=== PATIENT | female | born 2000 ===

== ENCOUNTER 2025-02-23 17:05 | Emergency (ER) | payer BC, SELFPAY ==
--- OUTSIDE RECORDS SUMMARY | 2025-02-13 16:30 | XMS_ITS ---
Author Organization [facility], Address [address] [address] Care Team Providers Care Environmental Engineering Assistant Name Role Phone ALBERT MASON Primary Care Provider Unavailabl Eagle Rodriguez Unavailable [phone] Migration, Provider Unavailable Unavailable REASON FOR VISIT Multum To Medispan Conversion Encounter Medications Medication SIG (Take, Route, Frequency, Duration) Notes Start Date End Date Status Propranolol HCl 60 MG Tablet 1 tab(s) orally 2 times a day; Duration: 30 day(s) Active Latuda 40 MG Tablet 1 tab(s) orally once a day; Duration: 6 week(s) Active Multivitamin *Please review a nd pick correct strength-formulati on from Medispan options. If intended option is not shown, discontinue and re-order from Quick Search* Active Vitamin D3 *Please review a nd pick correct strength-formulati on from Medispan options. If intended option is not shown, discontinue and re-order from Quick Search* Active Vitamin B12 *Please review a nd pick correct strength-formulati on from Medispan options. If intended option is not shown, discontinue and re-order from Quick Search* Active pyRIDostigmine Bushnell 60 MG Tablet 1/2-1 tab(s) orally 3 times a day; Duration: 30 days Active Encounters Encounter Location Date Provider Diagnosis [facility], [address] [address] 02/13/2025 Provider Migration Postural orthostatic tachycardia syndrome [POTS] G90.A Assessments Encounter Date Diagnosis (ICD Code) Assessment Notes Treatment Notes Treatment Clinical Notes Section Notes 02/13/2025 Postural orthostatic tachycardia syndrome [POTS] (ICD-10 - G90.A) Plan Of Treatment Medication Medication Name Sig Start Date Stop Date Notes pyRIDostigmine Bushnell 60 MG Tablet 1/2-1 tab(s) orally 3 times a day; Duration: 30 days Next Appt Details Provider Name:Eagle Reeves, 03/16/2025 11:30:00 AM, [facility], [address], [address], Progress Notes * GORDON AQUINORAFAELOB: 2000 (24 yo F)Acc No.[id number]:02/13/2025 Patient: GORDON MATA Provider: Michelle Steven :2000 A ge:24 Y S ex:Female Date:02/13/2025 Address:[address] [place], [place] [id number] Pcp:ALBERT MASON Patient's Default Facility: [facility], Subjective: * Chief Complaints: * M ultum To Medispan Conversion Encounter * Medications: T akingLatuda(Lurasidone HCl) 40 MG Tablet 1 tab(s) orally once a day Multivitamin , Notes to Pharmacist: *Please review and pick correct strength-formulation from Medispan options. If intended option is not shown, discontinue and re-order from Quick Search*Propranolol HCl 60 MG Tablet 1 tab(s) orally 2 times a day Vitamin B12 , Notes to Pharmacist: *Please review and pick correct strength-formulation from Medispan options. If intended option is not shown, discontinue and re-order from Quick Search*Vitamin D3 , Notes to Pharmacist: *Please review and pick correct strength-formulation from Medispan options. If intended option is not shown, discontinue and re-order from Quick Search*Taking Latuda(Lurasidone HCl) 40 MG Tablet 1 tab(s) orally once a day Taking Multivitamin , Notes to Pharmacist: *Please review and pick correct strength-formulation from Medispan options. If intended option is not shown, discontinue and re-order from Quick Search*Taking Propranolol HCl 60 MG Tablet 1 tab(s) orally 2 times a day Taking Vitamin B12 , Notes to Pharmacist: *Please review and pick correct strength-formulation from Medispan options. If intended option is not shown, discontinue and re-order from Quick Search*Taking Vitamin D3 , Notes to Pharmacist: *Please review and pick correct strength-formulation from Medispan options. If intended option is not shown, discontinue and re-order from Quick Search* Assessment: * Assessment: 1. P ostural orthostatic tachycardia syndrome [POTS] - G90.A Plan: * Treatment: * Electronic signature of Prov za Migration on 02/23/2025 at 07:42 PM EST Sign off status: Pending * Provider: Michelle graham Migration Date: 04/15/2024 Generated for Yvrose glez/Anitha/João on: 04/25/2024 07:42 PM EST
--- NOTE | 2025-02-23 17:15 | ED.GENADULT ---
HPI - General Adult General Chief complaint: General Medical Stated complaint: ?Concussion Time Seen by Provider: 02/23/25 18:18 History of Present Illness ED Provider: Landy MUJICA narrative: The patient is a 24-year-old female who has been having problems with the headaches for several months. She reports that she had several head injuries in May and June of this year. 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 She says that she was diagnosed with a post concussive syndrome. She is followed up with the workmen's compensation neurologist. She has had an MRI. She has gotten a new job and has not had any recent new head injuries but has had persistent headaches over the last several months. She has stopped seeing her workmen's compensation neurologist. She has a primary neurologist that she has seen previously for POTS syndrome. She says that over the last month her headaches has been worse. She also says that she has had pains all over her body. She also reports she has had hematuria. The patient had an MRI 6 weeks ago on January 09. This showed no acute findings. It showed a partially empty sella. It was compared to an MRI from April of 2023 and there was no significant change. Related Data Allergies Allergy/AdvReac Type Severity Reaction Status Date / Time No Known Allergies Allergy Verified 02/23/25 17:20 Review of Systems Review of Systems: Yes all other systems are reviewed and are negative [facility] Social History Social History Advance Directives: No Advance Directives Information Provided: No Physical Exam ED Vital Signs: Vital Signs - 24 hr 02/23/25 17:16 02/23/25 21:04 Temperature 98.7 F 98.3 F Pulse Rate 63 87 Respiratory Rate 18 16 Blood Pressure 161/85 H 136/74 Pulse Oximetry 99 97 Oxygen Delivery Method Room Air Room Air BMI result Body Mass Index 40.4 Const Other: The patient is awake and alert. The patient did not appear in obvious distress and did not seem acutely ill or in severe discomfort. HENMT Other: The face is symmetrical. Mucous membranes are moist. Eyes Other: Pupils are round, equal, and reactive to light, extraocular movements are intact, I did not think there was any funduscopic abnormality. I thought that there was no papilledema. Neck Other: The patient seemed able to touch her chin to her chest very easily. The neck seems entirely supple. Neck: Yes normal visual inspection and Yes no meningeal signs Resp Effort & Inspection: normal respiratory effort Auscultation: clear to auscultation bilaterally Cardio Rate: regular rate Rhythm: regular rhythm Heart sounds: S1 normal heart sound present and S2 normal heart sound present Skin Other: The skin is dry and unremarkable Neuro Other: The patient was awake and alert with a normal mental status and a normal affect. She did not seem toxic in any way. Pupils are round, equal, and reactive to light, extraocular movements are intact, funduscopic exam seems unremarkable, the face is symmetrical, speech was clear and normal, the patient has a completely supple neck, she has 5/5 strength in all 4 extremities. Finger-nose is normal. Heel-wakefield is normal. She has 1 to 2+ reflexes at the knees and ankles. Toes are going down bilaterally. She has a steady normal gait. She seems to have an entirely normal neurological exam. General: no meningeal signs Extrem Other: No peripheral edema Course Course Course Narrative: This is a rapid medical exam performed by Amada Brasher NP: Additional HPI, ROS, PE not included below will be deferred to primary provider. Patient is a 24y/o F presenting to the ED with cousin who reports that patient has had a prolonged course of symptoms since May of this year after several concussions, but was ultimately advised to present here by neurology. Has typed up notes regarding symptoms/workup thus far. Had MRI brain on 01/09 which was noted to be normal with exception of partially empty sella of indetermined signifigance. Complains of persistent migraines, forgetfulness, intermittent blurred vision, intermittent tinnitus, urinary sxs/hematuria, body aches. Patient very anxious and tearful in triage and expresses frustration at not receiving any diagnoses thus far. Symptoms interfering with sleep, work, etc. Plan: basic labs, UA to start Medications Administered Discontinued Medications Generic Name Dose Route Start Last Admin Trade Name Freq PRN Reason Stop Dose Admin Diphenhydramine HCl 25 mg 02/23/25 18:46 02/23/25 19:51 Diphenhydramine Hcl 50 Mg/Ml Vial IVPUSH 02/23/25 18:47 25 mg ONCE ONE Administration Gabapentin 300 mg 02/23/25 20:51 02/23/25 21:03 Gabapentin 300 Mg Capsule PO 02/23/25 20:52 300 mg ONCE ONE Administration Sodium Chloride 1,000 mls @ 999 mls/hr 02/23/25 19:00 02/23/25 19:52 Ns IV 02/23/25 20:00 999 mls/hr .Q1H1M RADHAMES Administration Ketorolac Tromethamine 15 mg 02/23/25 18:46 02/23/25 19:51 Ketorolac Tromethamine 15 Mg/Ml Vial IVPUSH 02/23/25 18:47 15 mg ONCE ONE Administration Prochlorperazine Edisylate 10 mg 02/23/25 18:48 02/23/25 19:51 Prochlorperazine Edisylate 10 Mg/2 Ml Vial IVPUSH 02/23/25 18:49 10 mg ONCE ONE Administration Medical Decision Making Medical Decision Making [facility] Narrative: The patient is a 24-year-old with a history of POTS who presents with a complaint of a headache syndrome that has been worsening over the last several months. She reports sustaining concussions from repeated head injuries at work earlier this year. She has been seen by a workmen's compensation neurologist. She also has a primary neurologist whom she had been connected with because of her POTS. She had an MRI 6 weeks ago as an outpatient that showed no acute findings and was similar to an MRI done in April 2023 which has been done because of her POTS. Clinically the patient does not appear toxic or obviously acutely ill in any way by my estimation. She was prescribed Qulipta by one of these 2 neurologists in November and she has been taking it since that time. She has not been getting significant relief from this. The patient has a friend who works at this hospital and who apparently contacted [facility] today and described the patient is having unrelenting headaches. Reportedly they were advised to come to the emergency room. On my physical exam I do not find any alarming findings and it was not my impression that the patient was in intractable discomfort. I explained to the patient that I did not think I would be able to make any diagnostic breakthrough today but would provide an attempt at some pain relief with migraine medications. The patient was then given IV fluids, IV ketorolac, prochlorperazine, and diphenhydramine. It was difficult to assess whether the patient received any significant effect from these medications because the patient had friends at the bedside who seemed very intent on having the patient admitted to the hospital because of these ongoing headache symptoms. I explained that I was not finding any acutely dangerous process that I thought indicated hospitalization and that I thought she would need to continue working with her primary care doctor and your primary neurologist. The patient was then discharged to follow up with her regular providers. She was given the contact information for [facility] in case she wishes to follow up locally. Lab Data 02/23/25 18:04 02/23/25 18:04 Labs: Lab Results 02/23/25 02/23/25 Range/Units 18:04 18:05 WBC 13.2 H (4.8-10.8) X10*3/uL RBC 4.96 (4.20-5.50) X10*6/uL Hgb 14.3 (12.0-16.0) g/dl Hct 43.9 (37.0-47.0) % MCV 88.5 (80.0-98.0) fL MCH 28.8 (27.0-33.0) pg MCHC 32.6 (31.0-35.0) g/dl RDW 12.9 (11.0-16.0) % Plt Count 303 (160-400) X10*3/uL MPV 9.8 (9.4-12.3) fL Immature Gran % (Auto) 0.3 (0.0-0.4) % Neut % (Auto) 57.1 (45-73) % Lymph % (Auto) 31.1 (20-40) % [place] % (Auto) 5.1 (2-11) % Eos % (Auto) 5.7 H (0-4) % Baso % (Auto) 0.7 (0-2) % Lymph # (Auto) 4.1 (1.2-4.9) X10*3/uL [place] # (Auto) 0.7 (0.1-1.2) X10*3/uL Eos # (Auto) 0.8 H (0.0-0.4) X10*3/uL Baso # (Auto) 0.1 (0.0-0.2) X10*3/uL Abs Immat Gran (auto) 0.04 H (0.00-0.03) X10*3/uL Absolute Neuts (auto) 7.5 (2.0-8.3) x10*3/uL Absolute Nucleated RBC 0.000 (0.0-0.012) X10*3/uL Nucleated RBC % (auto) 0.0 (0.0-0.2) /100WBC Sodium 144 (135-145) mmol/L Potassium 3.9 (3.3-5.1) mmol/L Chloride 108 (96-108) mmol/L Carbon Dioxide 25 (22-29) mmol/L Anion Gap 15 (12-20) BUN 8 L (9-16) mg/dL Creatinine 0.82 (0.5-1.4) mg/dL Estim Creat Clear Calc 125.0 Estimated GFR > 60 Random Glucose 95 (60-115) mg/dL Calcium 9.7 (8.4-10.2) mg/dL Total Bilirubin 0.3 (0.0-1.0) mg/dL AST 24 (5-31) U/L ALT 38 H (0-31) U/L Alkaline Phosphatase 105 (39-117) U/L Total Creatine Kinase 63 (26-140) U/L C-Reactive Protein 0.38 (< or = 0.50) mg/dL Total Protein 7.9 (6.5-8.0) g/dL Albumin 5.2 H (3.5-5.0) g/dL Beta HCG, Quant < 2 mIU/mL Urine Color Yellow Urine Appearance Clear Urine pH 6.5 (5.0-9.0) Ur Specific [place] 1.010 (1.005-1.025) Urine Protein Negative (Neg-Trace) mg/dL Urine Glucose (UA) Negative (Negative) mg/dL Urine Ketones Negative (Negative) mg/dL Urine Blood Trace H (Negative) Urine Nitrite Negative (Negative) Ur Leukocyte Esterase Negative (Negative) Urine RBC 0-2 (0-2) /HPF Urine WBC 0-5 (0-5) /HPF Ur Squamous Epith Cells 3-5 (0-2) /HPF Urine Bacteria None Seen (None Seen) Hyaline Casts 0-2 (0-2) /LPF Discharge Plan Discharge Clinical Impression: Headache Patient Disposition: Home, Self-Care Additional Instructions: Please contact your primary care doctor tomorrow morning and also your primary neurologist tomorrow morning to arrange follow up appointments to discuss these symptoms. Also contact your eye doctor. I think it would be good for you to be seen by an eye doctor as well. If you want to set up a neurology appointment in his area you have been given the contact information for [facility]. Please continue your current medications. Return to the emergency room if significantly worse. Referrals: [facility] [Provider Group] Rosa Elena Carter MD [Primary Care Provider, Family Practice] Interventions: ED Discharge Assessment Last Done: 02/23/25 21:04 Discharge Date/Time: 02/23/25 21:06 Print Language: Burkinan
[2025-02-23 17:16] VITALS: BP 161/85; PULSE 63; RESP 18; TEMP 37.1; O2SAT 99; BMI 40.4
[2025-02-23 18:12] LABS: MANUAL DIFF FLAG NO
[2025-02-23 18:14] LABS: Hematocrit 43.9 % (37.0-47.0); Hemoglobin 14.3 g/dl (12.0-16.0); Imm Gran Abs Auto 0.04 X10*3/uL (0.00-0.03); Imm Gran Pct Auto 0.3 % (0.0-0.4); Lymphocytes Absolute Auto 4.1 X10*3/uL (1.2-4.9); Mean Corpuscular HGB Conc 32.6 g/dl (31.0-35.0); Mean Corpuscular Hemoglobin 28.8 pg (27.0-33.0); Mean Corpuscular Volume 88.5 fL (80.0-98.0); NRBC Abs Auto 0.000 X10*3/uL (0.0-0.012); NRBC Pct Auto 0.0 /100WBC (0.0-0.2); Platelet Count 303 X10*3/uL (160-400); Red Blood Count 4.96 X10*6/uL (4.20-5.50); White Blood Count 13.2 X10*3/uL (4.8-10.8)
[2025-02-23 18:21] LABS: Appearance Urine Clear; Glucose Urine UA Negative (Negative); PH 6.5 (5.0-9.0); Specific Gravity - Urine 1.010 (1.005-1.025); UMIC TRIGGER UACC YES
[2025-02-23 18:34] LABS: Alanine Aminotransferase 38 U/L (0-31); Albumin Level 5.2 g/dL (3.5-5.0); Alkaline Phosphatase 105 U/L (39-117); Anion Gap 15 (12-20); Aspartate Amino Transferase 24 U/L (5-31); Blood Urea Nitrogen 8 mg/dL (9-16); Calcium 9.7 mg/dL (8.4-10.2); Carbon Dioxide 25 mmol/L (22-29); Chloride 108 mmol/L (96-108); Creatinine Clr Calc Pharmacy 125.0; Estimated Glomerular Filt Rate > 60; Potassium 3.9 mmol/L (3.3-5.1); Sodium 144 mmol/L (135-145); Total Protein 7.9 g/dL (6.5-8.0)
--- OUTSIDE RECORDS SUMMARY | 2025-02-23 19:42 | XMS_ITS | Clinical Summary ---
Author Organization [facility] Address [address] [place] [address] Care Team Providers Care Verifier Name Role Phone Pcp, No Primary Care Provider [phone] Immunizations Immunization Administration Dates Next Due PPD Test 09/05/2023 Social History Tobacco Use Types Packs/Day Years Used Date Smoking Tobacco: Never Assessed Comments Unknown Sex and Gender Information Value Date Recorded Sex Assigned at Not on file Legal Sex Female 11:31 AM EDT Gender Identity Not on file Sexual Orientation Not on file Last Filed Vital Signs Vital Sign Reading Time Taken Comments Blood Pressure - - Pulse - - Temperature 35.7 C (96.2 F) 10/27/2020 10:29 AM EDT Respiratory Rate - - Oxygen Saturation - - Inhaled Oxygen Concentration - - Weight - - Height - - Body Mass Index - - Plan of Treatment Health Maintenance Due Date Last Done Comments Depression: Screening Annually using PHQ-2/9 in Adults 18 yrs or above (or HM Modifier)([facility]) 11/26/2017 Hepatitis C Virus Infection in Adolescents and Adults: Screening (or Modifier) ([facility]) 11/26/2017 SDOH Screening Reminder: Annually for all adults ([facility]) 11/26/2017 Tobacco Smoking Cessation: i n Adults excluding Women: Behavioral and Pharmacotherapy Interventions ([facility]) 11/26/2017 Cervical Cancer Screenin-65 yrs of age (or Modifier) 11/26/2020 Cervical Cancer Screening: Pap every 3 yrs pts age 21-65 11/26/2020 Cervical Cancer: Pap Screening with Modifier timing ([facility]) 11/26/2020 Cervical Cancer: hrHPV alone or with cotesting Pap for Pts 30-65yrs screening every 5yrs ([facility]) 11/26/2020 Flu Vaccination: Yearly for ages 18mos through 64 years (or Modifier)([facility]) 10/30/2024 12/14/2016 COVID-19 Vaccine Screening: Initial Series and Booster Status ([facility]) (2 - season) 2024 08/02/2020 DTaP/Tdap/Td Vaccines ([facility]) (8 - Td or Tdap) 01/15/2033 01/15/2023, 04/05/2011, 11/29/2003, Additional history exists Zoster/Shingles Vaccine Series Screening: Adults aged 18+ yrs (or HM Modifiers)([facility]) (1 of 2) 11/26/2049 12/25/2007, 11/26/2000 Pneumococcal Vaccination Screening: Pts 0-19 & 19-49 yrs of age ([facility]) Aged Out 10/25/2000, 08/23/2000, 05/29/2000 No longer eligible based on patient's age to complete this topic Medical Devices Not on file Care Teams Verifier Relationship Specialty Start Date End Date Pcp, No PCP - General Family Medicine 09/05/23
--- OUTSIDE RECORDS SUMMARY | 2025-02-23 19:42 | XMS_ITS | Patient Health Record ---
Author Organization [facility] Address [id number] [place] [address] Care Team Providers Care Master Technician Name Role Phone FRANCISCO RODRIGUEZ, LAMINE Primary Care Provider Un available ALEXIS HUTCHINSON Unavailable [phone] Reason For Referral No Information Plan Of Treatment No Information Insurance Providers Payer Name Payer Address Payer Phone Subscriber Number Group Number Insured Name Patient Relationship to Insured Coverage Start Date Coverage End Date [facility] [address] [place] [address] [phone] [id number] GORDON FISHER Self - patient is the insured
--- OUTSIDE RECORDS SUMMARY | 2025-02-23 19:42 | XMS_ITS | Clinical Summary ---
Author Organization [facility] Address [address] [address] Phone Care Team Providers Care Ticket Attendant Name Role Phone Rosa Elena Carter MD Primary Care Provider [phone] Allergies No known active allergies Medications etonogestreL (NEXPLANON) 68 mg Impl Inject 68 mg into the skin Once every 3 years. Active propranoloL (INDERAL) 20 MG immediate release tablet Take 60 mg by mouth 2 (two) times a day. 12/29/2021 Active lurasidone (LATUDA) 40 mg tablet 11/23/2021 Active ibuprofen (ADVIL,MOTRIN) 600 MG tabletIndicatio ns:Concussion without loss of consciousness, subsequent encounter Take 1 tablet (600 mg total) by mouth every 8 (eight) hours as needed for pain (specific location in comments). Take with food 30 tablet 1 06/27/2024 Active ondansetron (ZOFRAN) 4 MG tabletIndicatio ns:Concussion without loss of consciousness, subsequent encounter Take 1 tablet (4 mg total) by mouth every 8 (eight) hours as needed for nausea. 12 tablet 06/27/2024 Active cefpodoxime (VANTIN) 200 MG tabletIndicatio ns:Lower abdominal pain Take 1 tablet by mouth 2 (two) times a day. 12/03/2024 Active Hospital, Clinic, or Other Facility Administered Medication Ordered Dose Route Frequency Start Date End Date Status etonogestreL (NEXPLANON) subdermal implant 68 mg 68 mg IDrm Every 3 years 11/10/2021 Active Active Problems Problem Noted Date Diagnosed Date Concussion with no loss of consciousness 025 Bipolar 2 disorder 10/12/2017 Anxiety disorder 10/01/2017 Recurrent major depressive disorder, in partial remission 10/01/2017 Encounters Date Type Department Care Team Description 01/06/2025 Telephone [facility] [facility] [address] [place] [address] Nini Monroe, disrespectful phone behavior 01/05/2025 Telephone [facility] [facility] [address] [place] [address] Nini Monroe DO appointment request 12/30/2024 Telephone [facility] [address] [place] [address] Gracie Rodriguez NP 12/09/2024 Telephone [facility] [address] [place] [address] Gissel Reeves MA 12/09/2024 Telephone [facility] [address] [place] [address] Enedina Callaway NP 12/09/2024 Telephone [facility] [address] [place] [address] Enedina Callaway NP 12/08/2024 5:00 PM EDT Office Visit [facility] [address] [place] [address] Enedina Callaway, FLAQUITO Lower abdominal pain (Primary Dx) 12/04/2024 Orders Only [facility] [address] [place] [address] Rosa Elena Carter MD 12/03/2024 Telephone [facility] [address] [place] [address] Rosa Elena Carter MD 12/03/2024 Telephone [facility] [address] [place] [address] Rosa Elena Carter MD from Last 3 Months Immunizations Immunization Administration Dates Next Due COVID-19 Pfizer Comirnaty Vaccine 12+ 02/04/2024 DTaP 11/29/2003, 2,05/29/2000,03/29,01/25/2000 HPV9 04/03/2016,11/28/2015,04/14/2015 Hepatitis A, ped/adol, 2 dose 06/11/2002, 002 Hepatitis A, pediatric, unsp ecified formulation 12/22/2001 Hepatitis B 11/26/2000, 1,03/29/2000,01/24 Hib, unspecified formulation 11/26/2000, 05/29/2000,03/29/2000,01/24 Hib,HbOC 11/26/2000,03/29/2000,01/25/2000 INFLUENZA, SPLIT VIRUS, TRIVALENT PF 12/25/2023, 01/01/2012 INFLUENZA, SPLIT VIRUS, TRIV ALENT W/ PRESERVATIVE IM 12/28/2010,12/25/2007,02/01/2006,12/08 IPV 11/29/2003, 1,03/29/2000,01/24 Influenza Quadrivalent Prese rvative Free IM 12/14/2016 Influenza Quadrivalent w/ Pr eservative IM 04/03/2016,02/17/2015 Influenza quadrivalent nasal 12/29/2013 MMR 11/29/2003,11/26/2000 Meningococcal MCV4P 04/14/2015,10/31/2012 PPD Test 09/05/2023,12/30/2020,10/29/2012 Pneumococcal conjugate, PCV 7 10/25/2000, 001,05/29/2000 Tdap 01/15/2023,04/05/2011 Varicella 12/25/2007,11/26/2000 Family History Medical History Relation Comments Hyperlipidemia Father Breast cancer Mother Cervical cancer Mother had a leep Relation Status Comments Father Mother Social History Tobacco Use Types Packs/Day Years Used Date Smoking Tobacco: Every Day Cigarettes Smokeless Tobacco: Never Tobacco Cessation:Ready to Q uit: Not Asked; Counseling Given: Not Answered Comments:Last updated date: 02/12/24 Last updated by: Agnes Lion MA Alcohol Use Standard Drinks/Week Comments Yes 0 (1 standard drink = 0.6 oz pur e alcohol) occasional Education Answer Date Recorded Are you interested in more education? Not on jacqueline e 07/27/2022 Are you concerned about learning? Not on file 07/27/2022 No 07/27/2022 No 07/27/2022 Digital Access Answer Date Recorded No 08/28/2022 No 08/28/2022 Reliable internet access at home? Not on file 08/28/2022 Device with a working camera? Not on file Comments No Sex and Gender Information Value Date Recorded Sex Assigned at Female 10/26/2021 1:25 PM EDT Legal Sex Female 10:30 AM EDT Gender Identity Female 10/26/2021 1:25 PM EDT Sexual Orientation Straight 10/26/2021 1: 25 PM EDT Last Filed Vital Signs Vital Sign Reading Time Taken Comments Blood Pressure 128/80 12/08/2024 5:05 PM EDT Pulse 96 12/08/2024 5:05 PM EDT Temperature 36.9 C (98.5 F) 06/27/2024 1:57 PM EDT Respiratory Rate 20 06/24/2024 5:41 PM EDT Oxygen Saturation 99% 12/08/2024 5:05 PM EDT Inhaled Oxygen Concentration - - Weight 106.6 kg (235 lb) 12/08/2024 5:05 PM EDT Height 162.6 cm (5' 4 ) 02/04/2024 3:15 PM EST Body Mass Index 40.34 02/04/2024 3:15 PM EST Plan of Treatment Upcoming Encounters Date Type Department Care Team (Late st Contact Info) Description 03/17/2025 9:00 AM EST Office Visit [facility] [address] [place] [address] Rosa Elena Carter MD [address] [place] [address] Health Maintenance Due Date Last Done Comments PNEUMOCOCCAL VACCINES (0-49 years) (1 of 2 - PCV) 11/26/2018 10/25/2000, 08/23/2000, 05/29/2000 INFLUENZA VACCINE (#1) 2024 4, 12/14/2016, 04/03/2016, Additional history exists Contraceptive Implant 11/10/2024 11/10/2021 PAP SMEAR 11/10/2024 11/10/2021, 11/10/2021 COVID-19 VACCINE ( season) 2024 02/04/2024, 04/21/2021, 08/02/2020 DEPRESSION SCREENING 02/03/2025 02/04/2024, 02/04/20 24 SMOKING Hx and SMOKELESS TOBACCO SCREENING 12/08/2025 12/08/2024 Adult Td,Tdap Booster 01/15/2033 01/15/2023, 012 HIB VACCINES Completed 11/26/2000, 10/31, 05/29/2000, Additional history exists MENINGOCOCCAL VACCINES (ACWY) Aged Out 04/14/2015, 10/31/2012 No longer eligibl e based on patient's age to complete this topic HPV VACCINES Completed 04/03/2016, 10/31, 04/14/2015 HEPATITIS C SCREENING Completed 01/11/2022 MENINGOCOCCAL VACCINES (B) Aged Out N o longer eligible based on patient's age to complete this topic Medical Devices Not on file Procedures Procedure Name Priority Date/Time Associated Diagnosis Comments CT ABDOMEN/PELVIS Routine 12/09/2024 2:4 5 PM EDT Lower abdominal pain LAB ADD ON Routine 12/09/2024 12:00 AM EDT Intractable abdominal pain HCG, SERUM QUALITATIVE Routine 5:36 PM EDT CBC AND DIFFERENTIAL Routine 12/08/2024 5:36 PM EDT Lower abdominal pain COMPREHENSIVE METABOLIC PANEL (CMP) Routine 12/08/2024 5:36 PM EDT Lower abdominal pain HEPATITIS C ANTIBODY, QUALITATIVE Routine 01/11/2022 2:31 PM EDT Annual physical exam Abnormal blood chemistry Need for hepatitis C screening test PAP TEST Routine 11/10/2021 from Last 3 Months or Most Recently Relevant to Health Maintenance Results * (ABNORMAL) Lab Add On: HCG (12/09/2024 12:00 AM EDT) Add-On CRMA completed( A) Completed; Unable to complete [facility] 12/09/2024 12/09/2024 3:3 8 PM EDT Narrative [facility] - 12/09/2024 5:16 PM EDT Serum HCG Phone/Pager:->CRMA millis Tests to be Added->HCG Resulting Agency Comment No Enedina Callaway ELEVATOR INSPECTOR LAB BLOOD ORDERABLES Final Resul t Performing Organization Address [facility] de Phone Number [facility] [address] [place] [address] * HCG, serum qualitative (12/08/2024 5:36 PM EDT) [facility] HCG, qualitative Negative Negative [facility] 12/08/2024 5:36 PM EDT 12/08/2024 6:25 PM EDT Narrative [facility] [employer] [facility] - 12/09/2024 4:34 PM EDT Negative: <25mIU/mLIf is suspected suggest retesting on new sample in 5-7 days. Resulting Agency Comment No Enedina Callaway ELEVATOR INSPECTOR LAB BLOOD BKR ORDERABLES Final R esult Performing Organization Address [facility] de Phone Number [facility] [address] [place] [address] * (ABNORMAL) Comprehensive metabolic panel (12/08/2024 5:36 PM EDT) [facility] Sodium 141 135 - 146 mEq/L [facility] Potassium 3.8 3.5 - 5.3 mEq/L [facility] Chloride 106 98 - 107 mEq/L [facility] CO2 24 20 - 31 mEq/L [facility] Anion Gap 11 4 - 14 [facility] Glucose 108(H) 70 - 99 mg/dL [facility] BUN 9 6 - 20 mg/dL [facility] Creatinine 0.6 0.6 - 1.1 mg/dL [facility] GFR >100 >60 mL/min/1.7 3m^2 [facility] Calcium 10.0 8.4 - 10.2 mg/dL [facility] Corrected Calcium 9.4 8.4 - 10.2 mg/dL [facility] Protein, Total 7.3 6.2 - 8.2 g/dL [facility] Alkaline Phosphatase 88 0 - 130 U/L [facility] Albumin 4.8 3.4 - 5.2 g/dL [facility] ALT (SGPT) 42(H) 0 - 40 U/L [facility] AST (SGOT) 27 0 - 33 U/L [facility] Bilirubin, Total 0.5 0.3 - 1.2 mg/dL [facility] Blood 12/08/2024 5:36 PM EDT 12/08/2024 6:25 PM EDT Narrative Resulting Agency Comment No us Enedina Callaway ELEVATOR INSPECTOR LAB BLOOD BKR ORDERABLES Final R esult [facility] [address] * (ABNORMAL) CBC and differential (12/08/2024 5:36 PM EDT) WBC 10.0 3.9 - 11.0 k/uL [facility] RBC 4.78 3.79 - 5.23 M/uL [facility] HGB 14.0 11.0 - 15.0 g/dL [facility] HCT 42.5 34.0 - 46.0 % [facility] MCV 89 80 - 100 fL [facility] MCH 29 27 - 33 pg [facility] MCHC 33 31 - 36 g/dL [facility] RDW-CV 12.6 11.6 - 14.8 % [facility] PLT 297 142 - 424 K/uL [facility] Neut# 5.0 2.0 - 6.9 K/uL [facility] Lymph# 3.6(H) 0.6 - 3.4 K/uL [facility] [place]# 0.5 0.0 - 0.9 K/uL [facility] Eo# 0.8(H) 0.0 - 0.7 K/uL [facility] Baso# 0.1 0.0 - 0.2 K/uL [facility] Blood 12/08/2024 5:36 PM EDT 12/08/2024 6:25 PM EDT Narrative Resulting Agency Comment No Enedina Callaway ELEVATOR INSPECTOR LAB BLOOD BKR ORDERABLES Final R esult Performing Organization Address City/[facility]/ZIP Co de Phone Number [facility] [address] [facility] [address] [place] [address], [facility] * Hepatitis C antibody, qualitative (01/11/2022 2:31 PM EDT) HepC AB Non Reactive Non Reactive;E quivocal;R eactive [facility] Blood 01/11/2022 2:31 PM EDT 01/11/2022 2:31 PM EDT Donna Lutz SENIOR TECHNICAL PROGRAM MANAGER LAB BLOOD BKR ORDERABLES Teresa l Result Performing Organization Address [facility] [place] [address] * Pap Smear (11/10/2021) 11/10/2021 11/10/2021 8:5 0 PM EDT Narrative [facility] - 11/28/2021 6:51 PM EDT PUBLIC RELATIONS COORDINATOR Tract Thin Prep Pap, Only PUBLIC RELATIONS COORDINATOR Patient History SOURCE:Cervix HPV ORDERED? NO LMP:[id number] MICRO ORDERED? CT/GC Only OTHER:NEXPLANON. Final Cytologic Diagnosis Specimen Adequacy: Satisfactory for Evaluation. Interpretation/Result: 1) Negative for Intraepithelial Lesion/Malignancy. 2) Shift in sita consistent with Bacterial Vaginosis. 3) Inflammation - Moderate. This pap test was evaluated with the assistance of the ThinPrep Pap Test Imaging System. HPV Notation: HPV testing was not ordered. Signed Jesus Manuel Cantu 11/28/21 1851 ----- ------- us Nini Monroe DO CYTOLOGY ORDERABLES Final Result [address] [address], [facility] [phone] from Last 3 Months or Most Recently Relevant to Health Maintenance Insurance OUT [facility] PPO PPO BLUE [place] OUT OF STATE PPO BLUE [place] OUT OF STATE PPO OUT OF STATE PPO BLUE [place] OUT OF STATE PPO [place] OUT OF [facility] PPO BLUE [place] OUT OF [facility] PPO BLUE [place] OUT OF STATE PPO Care Teams Ticket Attendant Relationship Specialty Start Date End Date Rosa Elena Carter MD [address] [place] [address] [email or web address] PCP - General Family Medicine 09/07/20 Additional Source Comments The information contained in this document represents components of the legal health record. It is not the complete legal health record.[facility]
--- OUTSIDE RECORDS SUMMARY | 2025-02-23 19:42 | XMS_ITS | Clinical Summary ---
Author Organization [facility] Address [address] [place] [address] Care Team Providers Care Psychological Operations Specialist Name Role Phone Rosa Elena Carter MD Primary Care Provider [phone] Immunizations Immunization Administration Dates Next Due Covid-19, Vector-nr (Rufino), 0.5 Ml 08/02/2020 HPV9 (Gardasil 9) 04/03/2016,11/28/2015,04/14/19 16 Influenza,injectable,quad,preservative 7,02/17/2015 Meningococcal ACWY (Menactra) 04/14/2015 PPD/TST (Tuberculin Skin Test) 12/30/2020 Social History Tobacco Use Types Packs/Day Years Used Date Smoking Tobacco: Never Assessed Comments Unknown Sex and Gender Information Value Date Recorded Sex Assigned at Not on file Legal Sex Female 4:12 PM EDT Gender Identity Not on file Sexual Orientation Not on file Plan of Treatment Health Maintenance Due Date Last Done Comments Hepatitis C Screening 1999 Pap Smear 2015 DTaP/Tdap/Td (1 - Tdap) 11/26/2017 Hep B (1 of 3 - 19+ 3-dose series) 11/26/2018 COVID-19 Vaccine (2 - 2024-2 6 season) 2024 08/02/2020 Influenza (#1) 2024 04/03/2016, 02/17/2015 Zoster (Shingrix) (1 of 2) 11/26/2049 Meningococcal ACWY Aged Out 04/14/2015 No longer eligible based on patient's age to complete this topic HPV Vaccine Completed 04/03/2016, 11/28/2015, 04/14/2015 Hep A Aged Out No longer eligi ble based on patient's age to complete this topic Hib Aged Out No longer eligi ble based on patient's age to complete this topic Pneumococcal Aged Out No longer eligi ble based on patient's age to complete this topic Care Teams Psychological Operations Specialist Relationship Specialty Start Date End Date Rosa Elena Carter MD [facility] [address] [place] [address] PCP - General Family Medicine 12/01/24
--- OUTSIDE RECORDS SUMMARY | 2025-02-23 19:43 | XMS_ITS | Clinical Summary ---
Author Organization Jerri Abhinav Pep[facility] Address [address] [place] [id number] Care Team Providers Care Eligibility Clerk Name Role Phone Unknown, Provider Primary Care Provider Unava ilable Encounters Date Type Department Care Team Description 02/03/2025 4:30 PM EST - 02/03/2025 11:59 PM EST Hospital Encounter [facility] Radiology [address] [place] [id number] Pelvic and perineal pain bilateral Discharge Disposition: Home or Self Care from Last 3 Months Social History Tobacco Use Types Packs/Day Years Used Date Smoking Tobacco: Never Assessed Comments Unknown Sex and Gender Information Value Date Recorded Sex Assigned at Not on file Legal Sex Female 4:16 PM EDT Gender Identity Not on file Sexual Orientation Not on file Plan of Treatment Health Maintenance Due Date Last Done Comments Blood Pressure 1999 Depression Screening 2011 Hepatitis C Screening 11/26/2017 Cervical Cancer Screening 11/26/2020 Pap Smear 11/26/2020 COVID-19 Vaccine ( season) 2024 02/04/2024, 08/02/2020 DTaP,Tdap,and Td Vaccines (8 - Td or Tdap) 01/15/2033 01/15/2023, 04/05/2011, 11/29/2003, Additional history exists Pneumococcal Vaccine Aged Out 10/25/2000, 08/23/2000, 05/29/2000 No longer eligible based on patient's age to complete this topic Meningococcal Vaccines Aged Out 04/14/2015, 2012 No longer eligible based on patient's age to complete this topic Influenza Vaccine Completed 12/30/2024, , 12/25/2023, Additional history exists Meningococcal B Vaccines Aged Out No longer eligible based on patient's age to complete this topic Procedures Procedure Name Priority Date/Time Associated Diagnosis Comments US PELVIS COMPLETE W TRANSVAGINAL Routine 02/03/2025 5:42 PM EST Pelvic and perineal pain bilateral from Last 3 Months Results * US PELVIS COMPLETE W TRANSVAGINAL (02/03/2025 5:42 PM EST) Anatomical Region Laterality Modality Pelvis Ultrasound 02/04/2025 7:21 AM EST Impressions 02/07/2025 9:48 PM EST The uterus and ovaries appear normal. BY ELECTRONICALLY SIGNING THIS REPORT, I THE ATTENDING PHYSICIAN ATTEST THAT I HAVE REVIEWED THE IMAGES FOR THE ABOVE PROCEDURE(S) AND AGREE WITH THE FINDINGS DOCUMENTED. Faith Brambila MS Nehemiah Dorsey MD, electronically signed on Feb 07 2025 09:48PM Narrative 02/07/2025 9:48 PM EST EXAMINATION: US PELVIS COMPLETE W TRANSVAGINAL INDICATION: pelvic and perineal pain bilateral.; unknown LMP, Nexplanon TECHNIQUE: Grayscale ultrasound images of the pelvis were obtained with transabdominal approach followed by transvaginal approach for further delineation of uterine and ovarian anatomy. COMPARISON: None. FINDINGS: UTERUS: The uterus is anteverted and measures 5.6 x 2.4 x 3.0 cm. A trace amount of fluid within the endocervical canal. ENDOMETRIUM: The endometrium is homogenous and measures 4 mm. RIGHT OVARY: The right ovary is normal. LEFT OVARY: The left ovary is normal. A dominant follicle within the left ovary measuring up to 2.7 cm. There is no free fluid. Procedure Note Nehemiah Dorsey MD - 02/07/2025 EXAMINATION: US PELVIS COMPLETE W TRANSVAGINAL INDICATION: pelvic and perineal pain bilateral.; unknown LMP, Nexplanon TECHNIQUE: Grayscale ultrasound images of the pelvis were obtained with transabdominal approach followed by transvaginal approach for further delineation of uterine and ovarian anatomy. COMPARISON: None. FINDINGS: UTERUS: The uterus is anteverted and measures 5.6 x 2.4 x 3.0 cm. A trace amount of fluid within the endocervical canal. ENDOMETRIUM: The endometrium is homogenous and measures 4 mm. RIGHT OVARY: The right ovary is normal. LEFT OVARY: The left ovary is normal. A dominant follicle within the left ovary measuring up to 2.7 cm. There is no free fluid. IMPRESSION: The uterus and ovaries appear normal. BY ELECTRONICALLY SIGNING THIS REPORT, I THE ATTENDING PHYSICIAN ATTEST THAT I HAVE REVIEWED THE IMAGES FOR THE ABOVE PROCEDURE(S) AND AGREE WITH THE FINDINGS DOCUMENTED. Faith Brambila [facility] Nehemiah Doresy MD, electronically signed on Feb 07 2025 09:48PM us Mirtha Brandt MD [facility] ORDERABLES Final Result from Last 3 Months Insurance [facility] Care Teams Eligibility Clerk Relationship Specialty Start Date End Date Unknown, Provider, [address] [place] [id number] PCP - General 02/01/25
--- OUTSIDE RECORDS SUMMARY | 2025-02-23 19:43 | XMS_ITS | Clinical Summary ---
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 FLUoxetine (PROzac) 20 mg capsule Take 3 capsules (60 mg total) by mouth daily. 90 capsule 2 09/17/2017 Active QUEtiapine (SEROquel) 50 mg tablet Take 1 tablet (50 mg total) by mouth nightly. 30 tablet 2 12/24/2017 Active phenazopyridine (PYRIDIUM) 200 mg tablet Take 1 tablet (200 mg total) by mouth 3 times a day as needed for bladder spasms. 6 tablet 12/30/2024 Active ibuprofen (MOTRIN) 600 mg tablet Take 1 tablet (600 mg total) by mouth every 6 hours as needed for pain, fever or headache. 30 tablet 12/30/2024 Active acetaminophen (TYLENOL) 325 mg tablet Take 2 tablets (650 mg total) by mouth every 4 hours as needed for pain, headache or fever. 30 tablet 12/30/2024 Active Active Problems Problem Noted Date Diagnosed Date Major depression, recurrent 08/15/2016 Anxiety disorder 08/15/2016 Resolved Problems Problem Noted Date Diagnosed Date Resolved Date Cannabis abuse 08/15/2016 07/23/2017 Encounters Date Type Department Care Team Description 01/09/2025 Orders Only [place] [facility] [address] [place] [address] Whitney Del Rio MD Postconcussional syndrome 12/30/2024 7:50 PM EDT - 12/30/2024 11:50 PM EDT Emergency [facility] Emergency Department [address] [place] [address] Jose Del Rio MD Lower abdominal pain (Primary Dx) Discharge Disposition: Home or Self Care () from Last 3 Months Immunizations Immunization Administration Dates Next Due INFLUENZA, SPLIT VIRUS, TRIVALENT, PF 12/30/2024 Family History Medical History Relation Name Comments Other Father Family History of depression Relation Name Status Comments Father Social History Tobacco Use Types Packs/Day Years Used Date Smoking Tobacco: Never Smokeless Tobacco: Never Tobacco Cessation:Counseling Given: Not Answered Comments Unknown Sex and Gender Information Value Date Recorded Sex Assigned at Female 12/30/2024 6:40 PM EDT Legal Sex Female 7:47 AM EDT Gender Identity Female 02/19/2025 11:57 AM EST Sexual Orientation Not on file Last Filed Vital Signs Vital Sign Reading Time Taken Comments Blood Pressure 109/44 12/30/2024 10:15 PM EDT Pulse 96 12/30/2024 10:15 PM EDT Temperature 36.9 C (98.4 F) 12/30/2024 6:01 PM EDT Respiratory Rate 18 12/30/2024 10:15 PM EDT Oxygen Saturation 99% 12/30/2024 10:15 PM EDT Inhaled Oxygen Concentration - - Weight 99.8 kg (220 lb) 12/30/2024 6:01 PM EDT Height 162.6 cm (5' 4 ) 12/30/2024 6:01 PM EDT Body Mass Index 37.76 12/30/2024 6:01 PM EDT Plan of Treatment Health Maintenance Due Date Last Done Comments HIV Screening 1999 Hepatitis C Screening 1999 Pap Smear 1999 HPV Vaccines (1 - 3-dose series) 11/26/2014 Alcohol/Substance Use Screening 04/01/2024 Depression Screening and Follow-Up 04/01/2024 Social Drivers of Health Annual Screening 04/01/2024 COVID-19 Vaccine ( season) 2024 02/04/2024, 08/02/2020 DTaP,Tdap,and Td Vaccines (8 - Td or Tdap) 01/15/2033 01/15/2023, 04/05/2011, 11/29/2003, Additional history exists Pneumococcal Vaccine: Pediatric (0-5 Years) and At-Risk Patients (6-50 Years) Aged Out 10/25/2000, 08/23/2000, 05/29/2000 No longer eligible based on patient's age to complete this topic Hepatitis B Vaccines Completed 11/26/2000, 05/29/2000, 03/29/2000, Additional history exists Varicella Vaccines Completed 12/25/2007, 11/26/2000 Influenza Vaccine Completed 12/30/2024, , 12/14/2016, Additional history exists Procedures * Due to [place] law, this organization might not be sharing negative HIV tests. Procedure Name Priority Date/Time Associated Diagnosis Comments MRI BRAIN WO CONTRAST Routine 01/09/2025 7:45 PM EDT Postconcussional syndrome URINE CULTURE, ROUTINE STAT 11:32 PM EDT US PELVIS NON OB TRANSABDOMINAL COMPLETE STAT 12/30/2024 10:54 PM EDT POCT HCG, URINE STAT 12/30/2024 6:19 PM EDT UA/CULTURE REFLEX STAT 12/30/2024 6:1 3 PM EDT URINALYSIS W/REFLEX TO MICROSCOPIC & CULTURE STAT 12/30/2024 6:13 PM EDT BASIC METABOLIC PANEL STAT 12/30/2024 6:08 PM EDT CBC AUTO DIFFERENTIAL STAT 12/30/2024 6:08 PM EDT from Last 3 Months Results * Due to [place] law, this organization might not be sharing negative HIV tests. * MRI Brain WO Contrast (01/09/2025 7:45 PM EDT) Anatomical Region Laterality Modality Head and Neck Magnetic Resonan ce 01/15/2025 1:57 PM EDT Impressions 01/15/2025 2:01 PM EDT No abnormality of the brain is identified. Incidentally noted is a partially empty sella. This is of questionable clinical significance and unchanged. If this radiology report contains a blank impression section, it is an incomplete radiology report. Please contact the interpreting radiologist or applicable radiology division as soon as possible to obtain the completed interpretation. Workstation ID: [id number] Narrative 01/15/2025 2:01 PM EDT EXAMINATION: MRI brain without contrast TECHNIQUE: Multiplanar multisequence MR imaging of brain performed without intravenous contrast administration. Sequences obtained include - Axial: T2 with fat suppression, FLAIR, DWI with ADC mapping, T1 and GRE/susceptibility images. Sagittal: T1 Coronal: T2 CLINICAL INFORMATION: Postconcussion syndrome. COMPARISON: MRI of the brain from 04/06/2023. FINDINGS: Evaluation is slightly degraded by motion artifact on a few sequences. There is no evidence of an acute infarct. No significant white matter change is identified. There is no intracranial hemorrhage. No intracranial mass lesion. No shift of midline structures. The ventricles and extra-axial CSF spaces are maintained. No hydrocephalus. The cerebellar tonsils are normal in position. The major intracranial vascular flow voids are grossly maintained. A partially empty sella is noted, of indeterminate clinical significance. This is unchanged. There is no significant CSF distention of the optic nerve sheath complexes to suggest imaging features of idiopathic intracranial hypertension. The craniocervical junction is maintained. No significant inflammatory change is identified in the paranasal sinuses and mastoid air cells. Resulting Agency Comment [facility]-TEST2 Procedure Note Eagle Greenwood MD - 01/15/2025 EXAMINATION: MRI brain without contrast TECHNIQUE: Multiplanar multisequence MR imaging of brain performed withoutintravenous contrast administration. Sequences obtained include - Axial: T2 with fat suppression, FLAIR, DWI with ADC mapping, T1 andGRE/susceptibility images. Sagittal: T1 Coronal: T2 CLINICAL INFORMATION: Postconcussion syndrome. COMPARISON: MRI of the brain from 04/06/2023. FINDINGS: Evaluation is slightly degraded by motion artifact on a few sequences. There is no evidence of an acute infarct. No significant white matterchange is identified. There is no intracranial hemorrhage. No intracranialmass lesion. No shift of midline structures. The ventricles andextra-axial CSF spaces are maintained. No hydrocephalus. The cerebellartonsils are normal in position. The major intracranial vascular flow voidsare grossly maintained. A partially empty sella is noted, of indeterminate clinical significance.This is unchanged. There is no significant CSF distention of the opticnerve sheath complexes to suggest imaging features of idiopathicintracranial hypertension. The craniocervical junction is maintained. No significant inflammatory change is identified in the paranasal sinusesand mastoid air cells. IMPRESSION: No abnormality of the brain is identified. Incidentally noted is a partially empty sella. This is of questionableclinical significance and unchanged. If this radiology report contains a blank impression section, it is anincomplete radiology report. Please contact the interpreting radiologistor applicable radiology division as soon as possible to obtain thecompleted interpretation. Workstation ID: [id number] Whitney Del Rio MD IMG MRI PROCEDURES Fin al Result * Urine Culture, Routine (12/30/2024 11:32 PM EDT) Culture No growth 12/31/2024 10:18 PM EDT [facility] Urine Urine specimen collection, clean catch / Unknown Non-Blood Collection / Unknown 12/30/2024 11:32 PM EDT 12/30/2024 11:37 PM EDT Narrative [facility] - 12/31/2024 10:18 PM EDT [facility] Received Date: MICRO NUMBER: [id number] SPECIMEN QUALITY: Adequate SOURCE: URINE CLEAN CATCH STATUS: FINAL Jose Del Rio MD LAB MICROBIOLOGY - GENERAL O RDERABLES Final Result [facility] [address], [place] [address], [place] [phone] [employer] [facility] [address], [place] [address], [place] [phone] * US Pelvis Non OB Transabdominal Complete (12/30/2024 10:54 PM EDT) Anatomical Region Laterality Modality Body, Pelvis N/A Ultrasound 12/30/2024 11:0 4 PM EDT Impressions 12/30/2024 11:07 PM EDT Markedly limited transabdominal pelvic ultrasound with nonvisualization of the ovaries and limited characterization of the uterus, which appears grossly unremarkable. If this radiology report contains a blank impression section, it is an incomplete radiology report. Please contact the interpreting radiologist or applicable radiology division as soon as possible to obtain the completed interpretation. Workstation ID: [id number] Narrative 12/30/2024 11:07 PM EDT EXAMINATION: PELVIC ULTRASOUND. INDICATION: lower abd pain, intermittent, severe TECHNIQUE: Transabdominal ultrasound imaging of the pelvis was performed. The patient declined transvaginal imaging. Color Doppler analysis of the ovaries was performed. COMPARISON: None available. FINDINGS: Markedly limited transabdominal sonographic evaluation of the pelvic organs. The urinary bladder is nondistended, which further limits evaluation. UTERUS: The uterus measures 6.1 x 3.1 x 4.0 cm (volume 39.0 mL). - Myometrium: Unremarkable. - Endometrium: The endometrium is not definitively identifiable. OVARIES/ADNEXA: The ovaries are not identified. No adnexal mass is identified. PELVIS: No free fluid. Resulting Agency Comment [id number] Procedure Note Giancarlo PittmanValerie, DO - 12/30/2024 EXAMINATION: PELVIC ULTRASOUND. INDICATION: lower abd pain, intermittent, severe TECHNIQUE: Transabdominal ultrasound imaging of the pelvis was performed.The patient declined transvaginal imaging. Color Doppler analysis of theovaries was performed. COMPARISON: None available. FINDINGS: Markedly limited transabdominal sonographic evaluation of the pelvicorgans. The urinary bladder is nondistended, which further limitsevaluation. UTERUS: The uterus measures 6.1 x 3.1 x 4.0 cm (volume 39.0 mL). - Myometrium: Unremarkable. - Endometrium: The endometrium is not definitively identifiable. OVARIES/ADNEXA: The ovaries are not identified. No adnexal mass is identified. PELVIS: No free fluid. IMPRESSION: Markedly limited transabdominal pelvic ultrasound with nonvisualization ofthe ovaries and limited characterization of the uterus, which appearsgrossly unremarkable. If this radiology report contains a blank impression section, it is anincomplete radiology report. Please contact the interpreting radiologistor applicable radiology division as soon as possible to obtain thecompleted interpretation. Workstation ID: [id number] us Jose Del Rio MD IMG US PROCEDURES Final Resu lt * POCT HCG, Urine, non-interfaced (12/30/2024 6:19 PM EDT) Control band present? Yes Background Clear? Yes Preg Test, Ur Negative Negative Urine 12/30/2024 6:19 PM EDT us Jose Del Rio MD POINT OF CARE TEST ORDERABLE S Final Result * (ABNORMAL) Urinalysis W/Reflex to Microscopic & Culture (12/30/2024 6:13 PM EDT) Color, Urine Yellow Colorless, Light Yellow, Yellow, Dark Yellow 12/30/2024 6:51 PM EDT [facility] Clarity, Urine Slightly Cloudy(A) Clear 12/30/2024 6:51 PM EDT [facility] Specific [place], Urine >1.030(H) <1.030 12/30/2024 6:51 PM EDT [facility] pH, Urine 6.0 4.6 - 8.0 12/30/2024 6:51 PM EDT [facility] Protein, Urine Trace(A) Negative 12/30/2024 6:51 PM EDT [facility] Glucose, Urine Normal Normal 12/30/2024 6:51 PM EDT [facility] Ketones, Urine Negative Negative 12/30/2024 6:51 PM EDT [facility] Bilirubin, Urine Negative Negative 12/30/2024 6:51 PM EDT [facility] Blood, Urine 1+(A) Negative 12/30/2024 6:51 PM EDT [facility] Nitrite, Urine Negative Negative 12/30/2024 6:51 PM EDT [facility] Urobilinogen, Urine Normal Normal 12/30/2024 6:51 PM EDT [facility] Leukocyte Esterase, Urine 3+(A) Negative 12/30/2024 6:51 PM EDT [facility] WBC, Urine 8(H) 0 - 2 /HPF 12/30/2024 6:51 PM EDT [facility] RBC, Urine 2 0 - 2 /HPF 12/30/2024 6:51 PM EDT [facility] Hyaline Casts, Urine 1 0 - 2 /LPF 12/30/2024 6:51 PM EDT [facility] Squamous Epithelial Cells, Urine 15 /HPF 12/30/2024 6:51 PM EDT [facility] Calcium Oxalate Crystals, Urine Rare /HPF 12/30/2024 6:51 PM EDT [facility] Bacteria, Urine Moderate(A) None /HPF /HPF 12/30/2024 6:51 PM EDT [facility] Mucus, Urine Occasional /LPF 12/30/2024 6:51 PM EDT [facility] Urine Urine specimen collection, clean catch / Unknown Non-Blood Collection / Unknown 12/30/2024 6:13 PM EDT 12/30/2024 6:22 PM EDT us Jose Del Rio MD LAB URINE ORDERABLES Final R esult [facility] [address] [place] [address], * (ABNORMAL) CBC Auto Differential (12/30/2024 6:08 PM EDT) WBC 11.0(H) 3.8 - 10.8 10*3/uL 12/30/2024 6:27 PM EDT [facility] RBC 5.05 3.80 - 5.10 10*6/uL 12/30/2024 6:27 PM EDT [facility] Hemoglobin 14.4 11.7 - 15.5 g/dL 12/30/2024 6:27 PM EDT [facility] Hematocrit 43.4 35.0 - 45.0 % 12/30/2024 6:27 PM EDT [facility] MCV 85.9 80.0 - 100.0 fL 12/30/2024 6:27 PM EDT [facility] MCH 28.5 27.0 - 33.0 pg 12/30/2024 6:27 PM EDT [facility] MCHC 33.2 32.0 - 36.0 g/dL 12/30/2024 6:27 PM EDT [facility] RDW 12.7 11.0 - 15.0 % 12/30/2024 6:27 PM EDT [facility] Platelets 345 140 - 400 10*3/uL 12/30/2024 6:27 PM EDT [facility] MPV 9.7 7.5 - 12.5 fL 12/30/2024 6:27 PM EDT [facility] Neutrophil % 57.3 % 12/30/2024 6:27 PM EDT [facility] Immature Grans % 0.3 0.0 - 0.9 % 12/30/2024 6:27 PM EDT [facility] Lymphocyte % 31.2 % 12/30/2024 6:27 PM EDT [facility] Monocyte % 5.6 % 12/30/2024 6:27 PM EDT [facility] Eosinophil % 5.1 % 12/30/2024 6:27 PM EDT [facility] Basophil % 0.5 % 12/30/2024 6:27 PM EDT [facility] Neutrophil # 6.29 1.50 - 7.80 10*3/uL 12/30/2024 6:27 PM EDT [facility] Immature Grans # 0.03 <=0.03 10*3/uL 12/30/2024 6:27 PM EDT [facility] Lymphocyte # 3.40 0.85 - 3.90 10*3/uL 12/30/2024 6:27 PM EDT [facility] Monocyte # 0.60 0.20 - 0.95 10*3/uL 12/30/2024 6:27 PM EDT [facility] Eosinophil # 0.60(H) 0.02 - 0.50 10*3/uL 12/30/2024 6:27 PM EDT [facility] Basophil # 0.10 0.00 - 0.20 10*3/uL 12/30/2024 6:27 PM EDT [facility] nRBC % 0.0 /100 WBCs 12/30/2024 6:27 PM EDT [facility] nRBC # <0.01 <0.01 10*3/uL 12/30/2024 6:27 PM EDT [facility] Blood Structure of peripheral vein / Unknown Venipuncture / Unknown 12/30/2024 6:08 PM EDT 12/30/2024 6:21 PM EDT us Jose Del Rio MD LAB BLOOD ORDERABLES Final R esult [facility] [address] [place] [address], [place] * (ABNORMAL) Basic Metabolic Panel (If age 70 or younger) (12/30/2024 6:08 PM EDT) NA 141 135 - 145 mmol/L 12/30/2024 6:59 PM EDT [facility] K 4.1 3.5 - 5.3 mmol/L 12/30/2024 6:59 PM EDT [facility] Cl 105 98 - 107 mmol/L 12/30/2024 6:59 PM EDT [facility] CO2 20(L) 22 - 32 mmol/L 12/30/2024 6:59 PM EDT [facility] BUN 11 7 - 23 mg/dL 12/30/2024 6:59 PM EDT [facility] Creatinine 0.77 0.50 - 1.20 mg/dL 12/30/2024 6:59 PM EDT [facility] Glucose 127(H) 65 - 99 mg/dL 12/30/2024 6:59 PM EDT [facility] Calcium 9.5 8.6 - 10.5 mg/dL 12/30/2024 6:59 PM EDT [facility] Anion Gap 16(H) 5 - 15 12/30/2024 6:59 PM EDT [facility] eGFR >90 >=60 mL/min/1. 73m2 12/30/2024 6:59 PM EDT [facility] Comment:The estimated glomer ular filtration rate (eGFR) is calculated using a new formula developed by the NKF-ASN task force to eliminate race-based correction factors. The new formula uses serum/plasma creatinine, age, and gender to determine eGFR. A value below 60mls/min might indicate kidney disease and will be flagged. For additional information, see Lio andino al, Am J Kidney Dis. 2021;79(2):268- 288, A Unifying Approach for GFR estimation: Recommendations of the NKF-ASN Task Force on Reassessing the Inclusion of Race in Diagnosing Kidney Disease . Blood Structure of peripheral vein / Unknown Venipuncture / Unknown 12/30/2024 6:08 PM EDT 12/30/2024 6:21 PM EDT us Jose Del Rio MD LAB BLOOD ORDERABLES Final R esult [facility] [address] [place] [address], [place] from Last 3 Months Insurance [address] [place] [address] [facility] PPO/EPO #[address] [place] [address] [facility] Care Teams Machine Quilt Stuffer Relationship Specialty Start Date End Date Rosa Elena Carter [address] [place] [address] PCP - General Internal Medicine 12/30/24
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
--- NOTE | 2025-02-23 20:20 | PC.NURSE ---
This RN assumed care of pt, pt found AOx4 in the fowlers position reporting symptoms of 7/10 BELL chronic for months along with symptoms of intermittent dizziness, ABD/back pain, urinary urgency w/ inability to void and light sensitivity. PT was bladder scanned with 5ml in bladder, 20g PIV placed in right AC and medicated per MAR. VSS.
[2025-02-23 21:04] VITALS: BP 136/74; PULSE 87; RESP 16; TEMP 36.8; O2SAT 97
--- NOTE | 2025-02-23 21:06 | PC.NURSE ---
upon discharge, pt family member at bedside upset about plan of care and discharge, MD Bill at bedside x2 to explain plan of care with pt and pt family member. whipper Loida spoke to pt and pt family member, pt medicated upon discharge. vss. pt verbalized frustration upon discharge but understood instructions and follow up referrals.
== END 2025-02-23 21:06 | disposition home or self-care (01) ==
PROVIDERS: Registered Nurse Emergency; Emergency Provider Emergency Medicine; PCP Family Medicine
DX: R51.9 Headache, unspecified (principal); R31.9 Hematuria, unspecified
CPT/HCPCS: 36415; 80053; 81001; 82550; 84702; 85025; 86140; 96361; 96374; 96375; 99284; J0737; J1200; J1885